=== PATIENT | female | born 1970 | race Caucasian/White ===

== ENCOUNTER 2016-11-05 11:57 | Emergency (ER) | payer BC ==
[2016-11-05 12:02] VITALS: BP 119/78; PULSE 78; RESP 18; TEMP 98; O2SAT 98
--- NOTE | 2016-11-05 12:34 | CPEKG ---
Heart Rate: 74 RR Interval: 811 P-R Interval: 172 QRSD Interval: 74 QT Interval: 408 QTC Interval: 453 P [place]: 68 QRS [place]: -3 T Wave [place]: 21 EKG Severity - NORMAL ECG - EKG Impression: SINUS RHYTHM Electronically Signed By: Jaylon Toth 06-Nov-2016 16:55:51
[2016-11-05] MEDS ORDERED: ASPIRIN 81 MG CHEWABLE TAB PO ONE (12:45)
[2016-11-05 12:50] LABS: % IMMATURE GRANULYOCYTES 0.2 % (0.0-1.1); ABSOLUTE IMMATURE GRANULOCYTES 0.02 10^3/uL (0.00-0.10); ADD DIFF? NO; ADD MORPH? NO; ADD SCAN? NO; ATYPICAL LYMPHOCYTE FLAG 10 (0-99); FRAGMENT RBC FLAG 0 (0-99); HEMATOCRIT 38.9 % (38.0-47.0); HEMOGLOBIN 13.8 g/dL (12.6-16.3); LEFT SHIFT FLG 0 (0-99); LIPEMIA HEMOLYSIS FLAG 90 (0-99); MEAN CELL HEMOGLOBIN 35.4 pg (27.9-34.1); MEAN CELL HEMOGLOBIN CONCENTR. 35.5 g/dL (32.4-36.7); MEAN CELL VOLUME 99.7 fL (81.5-99.8); MEAN PLATELET VOLUME 9.6 fL (8.7-11.7); PLATELET CLUMPS FLAG 0 (0-99); PLATELET COUNT 261 10^3/uL (150-400); RED CELL DISTRIBUTION WIDTH 12.7 % (11.5-15.2)
[2016-11-05 12:57] LABS: ANION GAP 13 mEq/L (8-16); CALCIUM 9.4 mg/dL (8.5-10.4); CARBON DIOXIDE 25 mEq/l (22-31); CHLORIDE 103 mEq/L (97-110); CREATININE 0.8 mg/dL (0.6-1.0); GLOMERULAR FILTRATION RATE > 60; GLUCOSE 86 mg/dL (70-100); POTASSIUM 4.2 mEq/L (3.5-5.2); SODIUM 141 mEq/L (134-144)
[2016-11-05 13:09] LABS: TROPONIN I < 0.012 ng/mL (0-0.034)
--- NOTE | 2016-11-05 14:36 | UCPHY ---
H & P Patient Type: New Chief Complaint Nursing Narrative: c/o substernal CP on and off since last week - call PCP today told to come to ED Time Seen by Provider: 11/05/16 12:46 HPI/ROS: CHIEF COMPLAINT: Chest pain History by patient HISTORY OF PRESENT ILLNESS: 45-year-old woman with no significant past medical history presents complaining of chest pain which has been going on for the past 3-4 days. She describes it as a tightness and pain on her anterior chest wall but also as heartburn which is associated with a feeling of a lump in her throat and a brackish taste in her mouth. Associated with some mild nausea but no vomiting. There is no associated shortness of breath or diaphoresis. She has had 3 or 4 episodes of the pain which have all occurred at night and awaken her from sleep. The episodes last approximately 1 hour. However patient feels like she is having heartburn and reflux all the time over the past several days. She tried taking some [place] with some relief but no relief from Tums. Pain is not worse with movement or exertion. Patient went on a bike ride yesterday and did not get the chest pain and she does not feel it is exertional. She has no history of hypertension diabetes or high cholesterol. She has had hysterectomy but not oophorectomy and has not yet been menopausal. She has never smoked. There is family history of Collins's esophagitis in both of her parents but no heart disease. REVIEW OF SYSTEMS: As in HPI, and all other systems reviewed and are negative - Personal History LMP (Females 10-55): Hysterectomy Current Tetanus Diphtheria and Acellular Pertussis (TDAP): Yes - Medical/Surgical History Other PMH: hyst - Family History Significant Family History: Other - Social History Smoking Status: Never smoked - Physical Exam Exam: General Appearance: Alert, [ ]. Eyes: Pupils equal and round no pallor or injection. ENT, Mouth: Mucous membranes moist. Respiratory: Normal, effort, There are no retractions, lungs are clear to auscultation. Cardiovascular: Regular rate and rhythm. Positive right lower sternal border tenderness Gastrointestinal: Abdomen is soft and nontender, no masses, bowel sounds normal. Neurological: Awake, alert and oriented x 3, no pronator drift, normal gait, no pronator drift Skin: Warm and dry, no rashes. Musculoskeletal: Neck is supple nontender. Extremities are symmetrical, full range of motion. Psychiatric: Patient has normal affect, there is no agitation. Constitutional: Initial Vital Signs Temperature (C) 36.6 C 11/05/16 11:59 Heart Rate 78 11/05/16 11:59 Respiratory Rate 18 11/05/16 11:59 Blood Pressure 119/78 11/05/16 11:59 O2 Sat (%) 98 11/05/16 11:59 O2 Delivery Mode Room Air Allergies/Adverse Reactions: No Known Allergies Allergy (Unverified 11/05/16 11:58) Home Medications: Medication Instructions Recorded Sprilactone 11/05/16 Medical Decision Making - Diagnostics EKG Interpretation: Normal sinus rhythm at a rate of 74 with normal axis, normal intervals and no ST segment abnormalities. No evidence of acute ischemia or arrhythmia. Impression: Normal EKG. Imaging: Imaging Impressions Chest X-Ray 11/05/16 12:45 Impression: No evidence of acute cardiopulmonary abnormality. Mild anterior wedge compression deformity of T8. If there is no history of prior trauma, consider DEXA scan to evaluate for underlying demineralization. Degenerative change thoracic spine. ED Course/Re-evaluation: 45-year-old woman presents with chest pain and heartburn which has been going on for 3 or 4 days. Symptoms are atypical for cardiac chest pain. Her EKG is normal. Labs are all within normal limits and a troponin and D-dimer are both negative. Chest x-ray is unremarkable by my interpretation. Patient's symptoms do sound somewhat like GERD which she feels it likely is. Patient states she only came here today because her primary care physician within see her they insisted she go to the ER. We discussed a trial of Prilosec to see if this resolves her improves her symptoms and follow up with the primary care physician to see if any further testing is required. Radiologist did note a slight compression fracture on the patient's T-spine and recommended a DEXA scan follow-up. Patient left prior to getting her discharge instructions from to inform her of this. However I was able to reach the patient by phone and we discussed this and she will follow up with the primary care physician Dr. Tao for further evaluation and to schedule DEXA scan. - Data Points Laboratory Results: Laboratory Results 11/05/16 12:30 11/05/16 12:30 11/05/16 11/05/16 11/05/16 12:30 12:30 12:30 WBC 8.27 10^3/uL 10^3/uL (3.80-9.50) RBC 3.90 10^6/uL L 10^6/uL (4.18-5.33) Hgb 13.8 g/dL g/dL (12.6-16.3) Hct 38.9 % % (38.0-47.0) MCV 99.7 fL fL (81.5-99.8) MCH 35.4 pg H pg (27.9-34.1) MCHC 35.5 g/dL g/dL (32.4-36.7) RDW 12.7 % % (11.5-15.2) Plt Count 261 10^3/uL 10^3/uL (150-400) MPV 9.6 fL fL (8.7-11.7) Neut % (Auto) 64.2 % % (39.3-74.2) Lymph % (Auto) 27.2 % % (15.0-45.0) [place] % (Auto) 6.7 % % (4.5-13.0) Eos % (Auto) 1.2 % % (0.6-7.6) Baso % (Auto) 0.5 % % (0.3-1.7) Nucleat RBC Rel Count 0.0 % % (0.0-0.2) Absolute Neuts (auto) 5.31 10^3/uL 10^3/uL (1.70-6.50) Absolute Lymphs (auto) 2.25 10^3/uL 10^3/uL (1.00-3.00) Absolute Monos (auto) 0.55 10^3/uL 10^3/uL (0.30-0.80) Absolute Eos (auto) 0.10 10^3/uL 10^3/uL (0.03-0.40) Absolute Basos (auto) 0.04 10^3/uL 10^3/uL (0.02-0.10) Absolute Nucleated RBC 0.00 10^3/uL 10^3/uL (0-0.01) Immature Gran % 0.2 % % (0.0-1.1) Immature Gran # 0.02 10^3/uL 10^3/uL (0.00-0.10) D-Dimer < 0.27 ug/mLFEU ug/mLFEU (0.00-0.50) Sodium 141 mEq/L mEq/L (134-144) Potassium 4.2 mEq/L mEq/L (3.5-5.2) Chloride 103 mEq/L mEq/L (97-110) Carbon Dioxide 25 mEq/l mEq/l (22-31) Anion Gap 13 mEq/L mEq/L (8-16) BUN 12 mg/dL mg/dL (7-23) Creatinine 0.8 mg/dL mg/dL (0.6-1.0) Estimated GFR > 60 Glucose 86 mg/dL mg/dL (70-100) Calcium 9.4 mg/dL mg/dL (8.5-10.4) Troponin I < 0.012 ng/mL ng/mL (0-0.034) Medications Given: Discontinued Medications Aspirin (Aspirin) 324 mg PO EDNOW ONE Stop: 11/05/16 12:46 Last Admin: 11/05/16 13:09 Dose: 324 mg Departure - Departure Disposition: Home, Routine, Self-Care Clinical Impression: Chest pain in adult GERD (gastroesophageal reflux disease) Qualifiers: Esophagitis presence: esophagitis presence not specified Qualified Code(s): K21.9 - Gastro-esophageal reflux disease without esophagitis Condition: Good Instructions: Gastroesophageal Reflux Disease (ED), Noncardiac Chest Pain (ED) Additional Instructions: You were seen by Dr. Argelia Diop today. Return for any worsening or new concerns. Your x-ray showed a small compression fracture in your back. Please follow up with the regular doctor to have a DEXA scan. Please also discussed further need for testing for your chest pain. Do a trial of Prilosec and see if this helps your reflux symptoms. See her regular doctor within the next few weeks to follow up on these problems. Referrals: Kari Tao MD [Primary Care Provider] - As per Instructions - PQRS PQRS Measurement: NA
== END 2016-11-05 14:40 | disposition home or self-care (01) ==
LOC: CED 11:57
DX: R07.9 Chest pain, unspecified (principal); K21.9 Gastro-esophageal reflux disease without esophagitis; Z90.710 Acquired absence of both cervix and uterus
CPT/HCPCS: 71020-PO; 80048-PO; 84484-PO; 85025-PO; 85378-PO; 93010-PO; 99205-PO; G0463-PO

== ENCOUNTER → 2018-05-20 | Outpatient (CLI) | payer OTHER | LOC: CIMAGING 13:00 | PROVIDERS: ATTEND Family Medicine | DX: N63.21 Unspecified lump in the left breast, upper outer quadrant (principal) | CPT/HCPCS: 76641-PO ==

== ENCOUNTER → 2018-05-26 | Outpatient (CLI) | payer OTHER ==
[~2018-05-26] MED LIST: BUPIVACAINE 0.5% 30 ML SDV ONE; LIDOCAINE 1% 300 MG/30 ML SDV ONE
== END ==
LOC: FIMAGING 07:16
PROVIDERS: ATTEND Family Medicine
PROC: 0HBU3ZX Excision of Left Breast, Percutaneous Approach, Diagnostic (ICD-10-PCS; principal; 2018-05-26)
DX: C50.919 Malignant neoplasm of unspecified site of unspecified female breast (principal)

== ENCOUNTER → 2018-06-11 | Outpatient (CLI) | payer OTHER ==
[~2018-06-11] MED LIST changes: -BUPIVACAINE 0.5% 30 ML SDV ONE; +GADOBUTROL 10 ML VIAL IVP ONE; -LIDOCAINE 1% 300 MG/30 ML SDV ONE
== END ==
LOC: FIMAGING 13:31
PROVIDERS: ATTEND Surgery
DX: C50.412 Malignant neoplasm of upper-outer quadrant of left female breast (principal)
CPT/HCPCS: 0159T; A9585; C8908

== ENCOUNTER 2018-07-01 08:37 | Observation (INO) | payer OTHER ==
[2018-07-01] MEDS ORDERED: ceFAZolin 2 GM/DEXTROSE 100 ML IV ONE (08:45)
[2018-07-01] MEDS ORDERED: LR 1,000 ML IV ONE (08:46)
[2018-07-01] MEDS ORDERED: BUPIVACAINE 0.25% 10 ML SDV ONE ×2 (10:34→10:36)
[2018-07-01] MEDS ORDERED: BACITRACIN 50,000 UNITS/10 ML SYR IRR ONE ×2 (10:35→14:31)
[2018-07-01] MEDS ORDERED: METHYLENE BLUE 0.5% 50 MG/10 ML AMP ONE (10:35)
[2018-07-01] MEDS ORDERED: GENTAMICIN SULFATE 80 MG/2 ML VIAL ONE ×2 (10:35→13:36)
[2018-07-01] MEDS ORDERED: THROMBIN (BOVINE) 5,000 UNIT VIAL TP ONE (10:36)
--- NOTE | 2018-07-01 10:49 | PDHPUP ---
History & Physical Update H&P update statement: This history and physical update is based on an assessment of the patient which was completed after admission or registration (within 24 hours), but prior to the surgery/procedure. H&P update: H&P reviewed & patient examined, no change in patient's condition since H&P completed
[2018-07-01] MEDS ORDERED: MIDAZOLAM 2 MG/2 ML VIAL IVP ONE (10:53)
[2018-07-01] MEDS ORDERED: MIDAZOLAM 2 MG/2 ML VIAL ONE (10:55)
--- NOTE | 2018-07-01 10:59 | PDANEPAE ---
ANE Past Medical History - Cardiovascular History Hx Hypertension: No Hx Arrhythmias: No Hx Chest Pain: No Hx Coronary Artery / Peripheral Vascular Disease: No Hx CHF / Valvular Disease: No Hx Palpitations: No - Pulmonary History Hx COPD: No Hx Asthma/Reactive Airway Disease: No Hx Recent Upper Respiratory Infection: No Hx Oxygen in Use at Home: No Hx Sleep Apnea: No Sleep Apnea Screening Result - Last Documented: Negative - Neurologic History Hx Cerebrovascular Accident: No Hx Seizures: No Hx Dementia: No - Endocrine History Hx Diabetes: No Endocrine History Comment: hyperthyroid - no treatment at this time - Renal History Hx Renal Disorders: No - Liver History Hx Hepatic Disorders: No - Neurological & Psychiatric Hx Hx Neurological and Psychiatric Disorders: No - Cancer History Hx Cancer: Yes Cancer History Comment: breast cancer - Congenital Disorder History Hx Congenital Disorders: No - GI History Hx Gastrointestinal Disorders: No - Other Health History Other Health History: wears glasses/contacts. acne - Chronic Pain History Chronic Pain: No - Surgical History Prior Surgeries: hysterectomy, 2010. fibroid removal. tonsillectomy ANE Review of Systems Review of Systems: - Exercise capacity Exercise capacity: >=4 METS METS (RN): 5 METS ANE Patient History - Allergies Allergies/Adverse Reactions: No Known Allergies Allergy (Verified 06/26/18 13:57) - Home Medications Home medications: home medication list seen and reviewed Home Medications: Spironolactone [Aldactone 50 MG (RX)] 50 mg PO DAILY 11/05/16 [Last Taken 1 Day Ago ~06/30/18] Calcium Carbonate [Oyster Shell Calcium 500 mg (*)] 500 mg PO DAILY 06/26/18 [ Last Taken 1 Day Ago ~06/30/18] Calcium Carbonate [Tums 500MG (*)] 500 mg PO DAILY PRN 06/26/18 [Last Taken 3 Days Ago ~06/28/18] Cyanocobalamin [Vitamin B12 (*)] 1,000 mcg PO DAILY 06/26/18 [Last Taken Unknown ] Ibuprofen [Motrin (*)] 200 mg PO DAILY PRN 06/26/18 [Last Taken 2 Days Ago ~09/15] [place]-3 Fatty Acids [Fish Oil 1000 mg (*)] 1,000 mg PO DAILY 06/26/18 [Last Taken Unknown] - NPO status NPO Status: no food or drink >8 hours NPO Since - Liquids (Date): 07/01/18 NPO Since - Liquids (Time): 06:30 NPO Since - Solids (Date): 06/30/18 NPO Since - Solids (Time): 19:30 - Smoking Hx Smoking Status: Never smoked - Family Anes Hx Family Hx Anesthesia Complications: none ANE Labs/Vital Signs - Labs Result Diagrams: 07/01/18 09:20 - Vital Signs Vital Signs: reviewed preoperatively; see RN documention for details Blood Pressure: 150/106 Heart Rate: 70 Respiratory Rate: 18 O2 Sat (%): 100 Height: 160.02 cm Weight: 54.431 kg ANE Physical Exam - Airway Neck exam: FROM Mallampati Score: Class 1 Mouth exam: normal dental/mouth exam - Pulmonary Pulmonary: clear to auscultation - Cardiovascular Cardiovascular: regular rate and rhythym - ASA Status ASA Status: III ANE Anesthesia Plan Anesthesia Plan: general endotracheal anesthesia
[2018-07-01] MEDS ORDERED: ceFAZolin 1 GM/5 ML SYR ONE ×2 (11:11→13:36)
[2018-07-01] MEDS ORDERED: DEXMEDETOMIDINE HCL 400 MCG in NS 100 ML IV SCH (11:30)
--- NOTE | 2018-07-01 12:56 | POSTOPPROG ---
Post Op Note Date of Operation: 07/01/18 Surgeon: Mariya Palumbo Purchasing Intern: tate Anesthesiologist: jerome Anesthesia: GET(General Endotracheal) Pre-op Diagnosis: L breast multifocal invasive ductal carcinoma Post-op Diagnosis: same Indication: 47yo F with multifocal L breast ca who desires B mastectomy Procedure: B mastectomy B SLN bx Findings: R SLN neg Inf/Abcess present in the surg proc area at time of surgery?: No EBL: Minimal Specimen(s): B breast - fresh B SLN - frozen B nipple pad - frozen
[2018-07-01] MEDS ORDERED: ONDANSETRON DISINTEGRATING 4 MG TAB PO PRN (12:57)
[2018-07-01] MEDS ORDERED: ONDANSETRON 4 MG/2 ML VIAL IVP PRN ×2 (12:57→14:44)
[2018-07-01] MEDS ORDERED: IBUPROFEN 600 MG TAB PO PRN (12:57)
[2018-07-01] MEDS ORDERED: ACETAMINOPHEN 325 MG TAB PO PRN (12:57)
[2018-07-01] MEDS ORDERED: diphenhydrAMINE 25 MG CAP PO PRN (12:57)
[2018-07-01] MEDS ORDERED: oxyCODONE IR 5 MG TAB PO PRN ×2 (12:59→14:44)
[2018-07-01] MEDS ORDERED: NITROGLYCERIN 2% 1 GM PACKET ONE (13:30)
[2018-07-01] MEDS ORDERED: NALOXONE HCL 0.4 MG/ML INJ IVP PRN (14:44)
[2018-07-01] MEDS ORDERED: DIAZEPAM 5 MG/ML 1 ML SYR IVP PRN (14:44)
[2018-07-01] MEDS ORDERED: MEPERIDINE 25 MG/0.5 ML AMP IVP PRN (14:44)
[2018-07-01] MEDS ORDERED: ACETAMINOPHEN 500 MG TAB PO PRN (14:44)
[2018-07-01] MEDS ORDERED: PHENYLEPHRINE HCL 100 MCG/ML SYR IVP PRN (14:44)
[2018-07-01] MEDS ORDERED: fentaNYL 100 MCG/2 ML INJ IVP PRN (14:44)
[2018-07-01] MEDS ORDERED: DEXAMETHASONE 4 MG/ML VIAL IVP PRN (14:44)
[2018-07-01] MEDS ORDERED: METOCLOPRAMIDE 10 MG/2 ML VIAL IVP PRN (14:44)
[2018-07-01] MEDS ORDERED: ALBUTEROL 3 ML DEYVIAL IH PRN (14:44)
[2018-07-01] MEDS ORDERED: LABETALOL HCL 20 MG/4 ML INJ IVP PRN (14:44)
[2018-07-01] MEDS ORDERED: PROMETHAZINE HCL 25 MG/ML INJ IVP PRN (14:44)
[2018-07-01] MEDS ORDERED: BACITRACIN ZINC 14.2 GM OINTTUBE TP ONE (14:51)
--- NOTE | 2018-07-01 15:17 | POSTOPPROG ---
Post Op Note Date of Operation: 07/01/18 Surgeon: Tomer Helton Actuarial Consultant: Madhav Sandoval Anesthesia: GET(General Endotracheal) Pre-op Diagnosis: Left breast cancer Post-op Diagnosis: Same Indication: Breast cancer Procedure: Bilateral TE and alloderm Inf/Abcess present in the surg proc area at time of surgery?: No EBL: Minimal (40cc) Total fluids administered: 1000cc Complications: none Drains: Gildardo Jang (x2)
--- NOTE | 2018-07-01 15:25 | POSTANESTH ---
Post Anesthetic Evaluation Cardiovascular Status: Normal, Stable Respiratory Status: Normal, Stable Level of Consciousness/Mental Status: Can Participate in Eval Pain Control: Adequate, Prn Tx Ordered Nausea/Vomiting Control: Adequate, Prn Tx Ordered Complications Possibly Related to Anesthesia: None Noted
[2018-07-01] MEDS ORDERED: HYDROmorphONE/DILAUDID 2 MG/ML INJ ONE (16:12)
[2018-07-01] MEDS: HYDROmorphONE/DILAUDID 2 MG/ML INJ IVP PRN ×2 (16:16→16:26)
[2018-07-01] MEDS ORDERED: ONDANSETRON 4 MG/2 ML VIAL ONE (16:51)
[2018-07-01] MEDS ORDERED: PROMETHAZINE HCL 25 MG/ML INJ ONE (16:57)
[2018-07-01] MEDS: HYDROCODONE/APAP 5/325 TAB PO PRN (20:51)
--- NOTE | 2018-07-01 22:49 | GOP ---
DATE OF OPERATION: 07/01/2018 SURGEON: Tomer Helton MD [place] PR[facility]ATION OFFICER: Madhav Campa, CONSUMER RECRUITER, [facility]. ANESTHESIA: General endotracheal. PREOPERATIVE DIAGNOSIS: Left breast cancer. POSTOPERATIVE DIAGNOSIS: Left breast cancer. PROCEDURE PERFORMED: Bilateral tissue dehorner insertion and AlloDerm. FINDINGS: Bilateral nipple sparing mastectomies. ESTIMATED BLOOD LOSS: For my portion of the procedure: 40 cc. INDICATIONS: This is a 47-year-old female with newly diagnosed left breast cancer. She elected to undergo bilateral nipple sparing mastectomies as well as immediate reconstruction with tissue expanders and AlloDerm. DESCRIPTION OF PROCEDURE: The patient was met previously in my office, where the risks and benefits were discussed with her at length which include, but are not limited to, infection, bleeding, hematoma, seroma, injury to the dehorner, injury to major vessels or nerves, asymmetry, poor cosmesis, and need for further revision surgeries. She was agreeable to this and, therefore, signed the operative consent. Prior to going into the operating room and going to sleep, she received 2 g of Ancef preoperatively for antibiotic prophylaxis. SCDs were placed for DVT prophylaxis, and due to the length of the case, a urinary catheter was not inserted at this time. Prior to going asleep, a time- out was performed where all in the room agreed upon the site and the procedure to be performed. The bilateral mastectomy parts will be dictated by my colleague, Dr. Mariya Palumbo. Similar procedures were performed on each side We began on the patient's right side. We identified the mastectomy and nipple to be viable. All hemostasis was contained with electrocautery. We began by identifying the lateral border of the pectoralis major muscle and lifting this off the chest wall to develop subpectoral pocket. Intercostal perforators were coagulated with electrocautery. We developed superiorly, medially, and then detached the inferior border of the pectoralis major muscle off the chest wall. With this disectiong the subpectoral pocket was confirmed. The measurements were made and deemed to be a base width of approximately 12 cm. We therefore chose a 133 MX-12T tissue dehorner. This was the same on both sides. We then utilized a 12 x 20 thick piece of AlloDerm. This was also used on both sides. This was contoured to a peggy [place] in order to complete the subpectoral pocket. This was then sewn in, recreating the patient's inframammary fold as well as lateral chest wall with a running 2-0 Vicryl suture. The pocket was then washed with copious amounts of sterile saline and then triple antibiotic. My faculty research assistant and I then changed our gloves. The dehorner was then taken out of its packaging. All the air was taken out in a closed sterile fashion. This was then marked for correct orientation and placed within the subpectoral pocket. The subpectoral pocket was then completely closed by reapproximating the superior edge of the AlloDerm to the inferior border of the pectoralis major muscle with a running 2-0 Vicryl suture. A 15-Spanish CHAU drain was placed within the axilla, and this was sutured to the skin with a 2-0 silk suture. We then temporarily closed the skin with willie, and in a closed sterile fashion with sterile saline infused with methylene blue, 175 cc were instilled in each dehorner on both sides, taking care to put no undue tension on the skin flaps as well as the nipple itself. We then closed complexly the incision. This was done with 3-0 Monocryl subcutaneous sutures and then a running 4-0 subcutaneous suture. Nitro paste was placed on each nipple to improve blood flow. The incisions were dressed with bacitracin, Xeroform, Mepilex Ag was placed upon the drain site. Fluffs and a surgical bra were then placed. The count was correct at the end of case. There were no immediate complications. She was awoken and taken to PACU in good condition. INTRAVENOUS FLUIDS: 1 L. URINE OUTPUT: Not recorded. /[id number]/MODL MTDD
[2018-07-02] MEDS: HYDROCODONE/APAP 5/325 TAB PO PRN ×3 (02:26→13:07)
[2018-07-02] MEDS: CYCLOBENZAPRINE 10 MG TAB PO PRN ×2 (03:53→11:27)
--- NOTE | 2018-07-02 08:58 | SOAPPROG ---
SOAP Progress Note Assessment/Plan: Assessment/Plan: 47yo F with L breast multifocal invasive ductal carcinoma, POD #1 s/p B nipple sparing mastectomy, B SLN biopsy, reconstruction by Dr. Helton Pain controlled Regular diet CHAU drain serosanguineous Ancef IV while inpatient, home with PO abx per plastics Dispo: Likely home later this afternoon if pain controlled. Seen with Dr. Palumbo. S: Feeling well this morning. Has gotten up to go to the bathroom without difficulty. Has not tried walking in the halls. Feels decreased strength in her left arm - no pain, no numbness or tingling. Oxy did not work well for her - switched to [place] which is much more effective. O: Well-developed well-nourished woman in no acute distress Clear to auscultation bilaterally, no increased work of breathing Regular rate and rhythm Chest dressings intact without staining. Left nipple slightly dusky. Right nipple pink. No chest wall bruising. Bilateral CHAU drains serosanguineous. Neuro: Grossly intact, slightly decreased left feeder catcher strength otherwise normal. Objective: Vital Signs Temp Pulse Resp BP Pulse Ox 36.8 C 95 14 106/66 98 07/02/18 07:12 07/02/18 07:12 07/02/18 07:12 07/02/18 07:12 07/02/18 07:12 Laboratory Results 07/01/18 09:20 07/01/18 07/02/18 07/03/18 05:59 05:59 05:59 Intake Total 1595 Output Total 225 Balance 1370 ICD10 Worksheet Patient Problems: Problems Problem Status Onset Invasive ductal carcinoma of left breast Acute - ICD10 Problem Qualifiers (1) Invasive ductal carcinoma of left breast
[2018-07-02] MEDS ORDERED: SPIRONOLACTONE 50 MG TAB PO SCH (09:00)
--- NOTE | 2018-07-02 10:07 | ASMTCMCOM ---
CM Note CM Note Notes: Chart reviewed for discharge planning purposes. Patient is 47 year old female s/p mastectomy. No needs identified at this time. CM to follow for needs. Plan: TBD Date Signed: 07/02/2018 10:06 AM Electronically Signed By:Annette Zambrano RN
[2018-07-02 15:18] VITALS: BP 136/78
--- NOTE | 2018-07-02 16:56 | ASMTLACE ---
MURALI Length of stay for Answers: 1 day current admission Comorbidities - select Answers: Any tumor (including all that apply lymphoma or leukemia) # of Emergency department Answers: 0 visits in the last 6 months Score: 3 Date Signed: 07/02/2018 04:56 PM Electronically Signed By:Annette Zambrano RN
--- NOTE | 2018-07-02 17:02 | ASMTDCNOTE ---
Case Management Discharge Discharge Order Complete? Answers: Yes Patient to Obtain Answers: via Family Medications Family Notified Answers: Yes Discharge Comments Notes: Discharge to home no needs Date Signed: 07/02/2018 05:02 PM Electronically Signed By:Annette Zambrano RN
--- NOTE | 2018-07-04 17:39 | GDS ---
ADMITTING DIAGNOSIS: Left breast cancer. SECONDARY DIAGNOSES: 1. Graves disease. 2. Nontoxic multinodular goiter. 3. Thoracic kyphosis. REASON FOR ADMISSION: The patient is a 47-year-old woman with a new diagnosis of left breast cancer. She desires bilateral mastectomy with reconstruction by Dr. Helton. She is admitted at this time for surgical intervention, pain control, and observation. HOSPITAL COURSE: She was taken to the operating room on 07/01/2018, for bilateral mastectomy with bi lateral sentinel lymph node biopsies by Dr. Palumbo, followed by reconstruction by Dr. Helton. She h ad a CHAU drain placed at the time of surgery. The frozen section of her sentinel lymph node biopsies were negative. On postoperative day #1, her pain was well controlled with oral pain medication. She was tolerating a regular diet. She is ambulating independently and was stable and ready for dischar ge. DISCHARGE CONDITION: She is being discharged home in stable condition. Pain is controlled, tolerati ng regular diet, ambulating independently. DISCHARGE MEDICATIONS: She had prescriptions previously filled per Dr. Helton of Keflex, Flexeril, oxycodone, instructed to resume home medicines. Please see EMR for further details. DISCHARGE INSTRUCTIONS AND FOLLOWUP: She will follow up with Dr. Helton as previously scheduled. Follow up with Dr. Palumbo in 2 weeks. She will empty and record CHAU drain output daily. She will call with any worsening symptoms, questions or concerns. /[id number]/MODL
== END 2018-07-02 16:57 | disposition home or self-care (01) ==
LOC: F3E 08:37 → F1N 12:34
PROVIDERS: ADMIT Surgery; ATTEND Surgery
PROC: 0HTV0ZZ Resection of Bilateral Breast, Open Approach (ICD-10-PCS; principal; 2018-07-01 11:00)
PROC: 07B60ZX Excision of Left Axillary Lymphatic, Open Approach, Diagnostic (ICD-10-PCS; principal; 2018-07-01 11:00)
PROC: 07B50ZX Excision of Right Axillary Lymphatic, Open Approach, Diagnostic (ICD-10-PCS; principal; 2018-07-01 11:00)
PROC: 0HRV0JZ Replacement of Bilateral Breast with Synthetic Substitute, Open Approach (ICD-10-PCS; 2018-07-01 11:00)
PROC: 3E0W3KZ Introduction of Other Diagnostic Substance into Lymphatics, Percutaneous Approach (ICD-10-PCS; 2018-07-01 11:00)
DX: C50.412 Malignant neoplasm of upper-outer quadrant of left female breast (principal); E05.20 Thyrotoxicosis with toxic multinodular goiter without thyrotoxic crisis or storm; M40.204 Unspecified kyphosis, thoracic region; Z80.3 Family history of malignant neoplasm of breast
CPT/HCPCS: 19303; 19340; 38500; 78195; A9520; G0378; J0690; J1170; J1580; J2250; J2405; J2550; Q4116; Q9968

== ENCOUNTER 2018-07-07 04:14 | Emergency (ER) | payer OTHER ==
[2018-07-07 04:20] VITALS: BP 113/97
--- NOTE | 2018-07-07 05:00 | EDPHY ---
H & P Stated Complaint: double masectomy - anyi not draining and bleeding at site Time Seen by Provider: 07/07/18 04:24 HPI/ROS: Chief Complaint: Surgical site swelling HPI: 47-year-old woman who is 5 days status post bilateral mastectomy with reconstruction. Mastectomy was performed by Dr. Palumbo, reconstruction performed by Dr. Grant. Patient noted increasing swelling in engorgement in her left chest with decreased draining out of her ANYI drain. They attempted to clear it and had some drainage but not significantly. She is complaining of increasing discomfort and swelling. No redness. No fevers or chills. ROS: 10 systems were reviewed and were negative except those elements noted in the HPI Social History: No smoking, no alcohol, no recreational drug use Family History: non-contributory Physical Exam: Gen: Awake, Alert, No Distress HEENT: Nose: no rhinorrhea Eyes: PERRLA, EOMI Mouth: Moist mucosa Neck: Supple, no JVD Chest: Bilateral mastectomies sites are intact. Patient his left chest is swollen engorged. There is serosanguineous fluid draining from around the ANYI site. There is about 10 cc in the ANYI drain but no active drainage Heart: S1, S2 normal, no murmur Abd: Soft, non-tender, no guarding Back: no CVA tenderness, no midline tenderness Ext: no edema, non-tender Skin: no rash Neuro: CN II-XII intact, Sensation grossly intact, Strength 5/5 in bilateral upper and lower extremities - Personal History LMP (Females 10-55): Hysterectomy Current Tetanus Diphtheria and Acellular Pertussis (TDAP): Yes - Medical/Surgical History Hx Asthma: No Hx Chronic Respiratory Disease: No Hx Diabetes: No Hx Cardiac Disease: No Hx Renal Disease: No Hx Cirrhosis: No Hx Alcoholism: No Hx HIV/AIDS: No Hx Splenectomy or Spleen Trauma: No Other PMH: hysterectomy - Social History Smoking Status: Never smoked Constitutional: Initial Vital Signs Temperature (C) 36.3 C 07/07/18 04:18 Heart Rate 95 07/07/18 04:18 Respiratory Rate 20 07/07/18 04:18 Blood Pressure 113/97 H 07/07/18 04:18 O2 Sat (%) 97 07/07/18 04:18 O2 Delivery Mode Room Air Allergies/Adverse Reactions: No Known Allergies Allergy (Verified 07/07/18 04:17) Home Medications: Medication Instructions Recorded Spironolactone [Aldactone] 50 mg PO DAILY 11/05/16 Calcium Carbonate [Oyster Shell 500 mg PO DAILY 06/26/18 Calcium 500 mg (*)] Calcium Carbonate [Tums 500MG (*)] 500 mg PO DAILY PRN 06/26/18 Cyanocobalamin [Vitamin B12 (*)] 1,000 mcg PO DAILY 06/26/18 Ibuprofen [Motrin (*)] 200 mg PO DAILY PRN 06/26/18 [place]-3 Fatty Acids [Fish Oil 1000 1,000 mg PO DAILY 06/26/18 mg (*)] Hydrocodone/APAP 5/325 [[place] 1 - 2 tab PO Q4H PRN #60 tab 07/02/18 5/325 (*)] Medical Decision Making ED Course/Re-evaluation: I have manipulated GB drain tubing and milk the tubing and have dislodged clot in the ANYI drain tube. It is now draining adequately. She is having some drainage around the ANYI site. I have discussed with Dr. Israel shaikh, the patient' s plastic surgeon. He would like the patient to present to his office at 9:00 a.m. For evaluation. Departure - Departure Disposition: Home, Routine, Self-Care Clinical Impression: ANYI drain bleeding Condition: Good Instructions: Mastectomy (DC) Additional Instructions: Follow up in Dr. Grant's office at 9:00 a.m. Today. Referrals: Tomer Helton MD [Medical Doctor] - As per Instructions
== END 2018-07-07 05:21 | disposition home or self-care (01) ==
DX: T85.838A Hemorrhage due to other internal prosthetic devices, implants and grafts, initial encounter (principal); Y82.9 Unspecified medical devices associated with adverse incidents; Z90.710 Acquired absence of both cervix and uterus